=== PATIENT | male | born 1965 | race Caucasian/White ===

== ENCOUNTER 2023-08-10 06:58 | Day surgery (SDC) | payer BC ==
[2023-08-09 15:22] VITALS: BMI 50.4
[2023-08-10 08:25] LABS: #Basophils 0.07 10x3/uL (0.0-0.2); %Basophils 0.9 % (0.0-1.0); %Lymphocytes 29.6 % (21.0-51.0); %Monocytes 8.5 % (0.0-10.0); %Neutrophils 56.9 % (42.0-75.0); Hematocrit 44.1 % (42.0-52.0); Mean Corpuscular Hemoglobin 29.9 pg (27.0-31.0); Mean Corpuscular Volume 87.8 fL (78.0-98.0); Mean Platelet Volume 8.6 fL (7.4-10.4); Platelet Count 386 10x3/uL (130-400); RBC Distribution Width 12.8 % (11.5-14.5); Red Blood Cell (RBC) Count 5.02 mill/uL (4.70-6.10)
[2023-08-10 08:47] LABS: Anion Gap 15 mmol/L (10-20); BUN (Urea Nitrogen) 17 mg/dL (8.4-25.7); Calc. Creatinine Clearance 229 mL/min (70-130); Calcium 9.3 mg/dL (7.8-10.44); Carbon Dioxide 22 mmol/L (22-29); Chloride 105 mmol/L (98-107); Estimated GFR 102; Glucose 123 mg/dL (70-105); Potassium 3.4 mmol/L (3.5-5.1); Sodium 139 mmol/L (136-145)
[2023-08-10] MEDS ORDERED: PROPOFOL 40 ML ONE (09:50)
== END 2023-08-10 12:43 | disposition home or self-care (01) ==
LOC: SDC 06:58
PROVIDERS: ATTEND Internal Medicine Cardiovascular Disease
PROC: 5A2204Z Restoration of Cardiac Rhythm, Single (ICD-10-PCS; principal; 2023-08-10)
PROC: B246ZZ4 Ultrasonography of Right and Left Heart, Transesophageal (ICD-10-PCS; principal; 2023-08-10)
DX: I48.92 Unspecified atrial flutter (principal); R06.09 Other forms of dyspnea; F43.10 Post-traumatic stress disorder, unspecified; I10 Essential (primary) hypertension; I48.4 Atypical atrial flutter; R94.31 Abnormal electrocardiogram [ECG] [EKG]; E66.01 Morbid (severe) obesity due to excess calories; E03.9 Hypothyroidism, unspecified; G47.33 Obstructive sleep apnea (adult) (pediatric); Z88.8 Allergy status to other drugs, medicaments and biological substances; Z87.891 Personal history of nicotine dependence; Z68.41 Body mass index [BMI] 40.0-44.9, adult; Z79.899 Other long term (current) drug therapy
CPT/HCPCS: 80048; 85025; 92960; 93005; 93010; 93312; J2704

== ENCOUNTER 2023-09-20 08:08 | Outpatient (CLI) | payer BC ==
[2023-09-20] MEDS ORDERED: Regadenoson 0.4 MG/5 ML SYRINGE ONE (08:18)
== END 2023-09-20 08:09 | disposition home or self-care (01) ==
LOC: NM 08:08
PROVIDERS: ATTEND Internal Medicine Cardiovascular Disease
DX: R06.00 Dyspnea, unspecified (principal)
CPT/HCPCS: 93017; J2785